=== PATIENT | male | born 1955 | race Caucasian/White ===

== ENCOUNTER → 2018-12-08 | Outpatient (REF) | payer OTHER ==
[2018-12-08 11:19] LABS: HEMATOCRIT 45.2 % (39.0-50.0); HEMOGLOBIN 15.3 g/dl (14.0-18.0); IMMATURE GRANULOCYTES 0.6 % (0.0-5.0); MEAN CELL VOLUME 99.1 fL CALC (80.0-100.0); MEAN CORPUSCULAR HGB 33.6 pG CALC (26.0-32.0); MEAN CORPUSCULAR HGB CONC 33.8 g/L CALC (32.0-36.0); NEUT# 4.36 thou/uL (1.82-7.42); RED BLOOD COUNT 4.56 mill/uL (4.70-6.10); RED CELL DISTRI WIDTH 12.9 % (11.5-15.5)
[2018-12-08 11:36] LABS: ALBUMIN 4.3 g/dL (3.2-5.0); ALKALINE PHOSPHATASE 62 u/l (38-126); ANION GAP 15 (6-22 (CALC)); BILIRUBIN, TOTAL 0.6 mg/dL (0.0-1.4); BUN 17 mg/dL (8-23); BUN/CREATININE RATIO 21 (12-20 (CALC)); CALCULATED LDLCHOLESTEROL 75 mg/dL (62-129 (CALC)); CARBON DIOXIDE 25 mmol/l (22-30); CHLORIDE 104 mmol/l (95-108); CHOLESTEROL HDL RATIO 5.1 (<4.4 (CALC)); CREATININE 0.8 mg/dL (0.7-1.3); GFR > 60 ML/MIN (>=60 (CALC)); GFR FOR AFR.AMER. > 60 ML/MIN (>=60 (CALC)); HDL CHOLESTEROL 32 mg/dL (>=40); POTASSIUM 4.3 mmol/l (3.5-5.1); SGOT/AST 32 u/l (19-48); SODIUM 140 mmol/l (137-146); TOTAL CHOLESTEROL 162 mg/dl (0-199); TOTAL TRIGLYCERIDES 274 mg/dl (30-149); VLDL CHOLESTROL 55 mg/dl (4-45 (CALC))
[2018-12-11 05:28] LABS: THYROID PEROXIDASE AB_i <1 IU/mL (<9)
== END | disposition home or self-care (01) | DRG 639 ==
LOC: LAB 10:38
PROVIDERS: ATTEND Nurse Practitioner Family
DX: E11.69 Type 2 diabetes mellitus with other specified complication (principal); E78.2 Mixed hyperlipidemia; Z79.899 Other long term (current) drug therapy; E06.9 Thyroiditis, unspecified

== ENCOUNTER → 2024-08-02 | Day surgery (SDC) | payer MEDICARE, OTHER ==
[~2024-08-02] VITALS: Ht 180.3 cm; Wt 110.2 kg
[~2024-08-02] MED LIST: ASPIRIN81 MG PO; BACTRIM DS1 TAB PO; CEPHALEXIN500 M1 PO; ELIQUIS5 MG PO; FAMOTIDINE 10MG/ML 2ML SDV IV ONE; GLYCOPYRROLATE 0.2 MG/ML IV ONE; HYDROCO/APAP1 TA9 PO; LIDOCAINE HCL 2% 2ML SDV IV ONE; LIPITOR10 M1 PO; LOPRESSOR25 MG PO; LOSARTAN POTASS50 MG PO; METFORMIN HCL1000 M1 PO; METOPROLOL TARTRATE 5 MG/5 ML VIAL IV ONE; OZEMPIC2 MG SC; PROPOFOL 200 MG/20 ML VIAL IV ONE; SODIUM CHLORIDE 0.9% 1,000 ML IV ONE
[2024-08-02 09:24] VITALS: BP 119/85
[2024-08-02 10:19] LABS: ALBUMIN 3.8 g/dL (3.2-5.0); BILIRUBIN, TOTAL 0.7 mg/dL (0.2-1.3); CREATININE 0.8 mg/dL (0.7-1.3); POTASSIUM 3.9 mmol/l (3.5-5.1); TOTAL PROTEIN 6.2 g/dL (6.3-8.2)
== END | disposition short-term general hospital (02) ==
LOC: ENDO 07:37
PROVIDERS: ATTEND Surgery
PROC: 0DJD8ZZ Inspection of Lower Intestinal Tract, Via Natural or Artificial Opening Endoscopic (ICD-10-PCS; principal; 2024-08-02)
DX: Z12.11 Encounter for screening for malignant neoplasm of colon (principal); K64.8 Other hemorrhoids